=== PATIENT | male | born 1985 | race Caucasian/White ===

== ENCOUNTER 2018-10-11 19:30 | Emergency (ER) | payer OTHER ==
[2018-10-11 19:37] VITALS: BP 128/83; PULSE 87; TEMP 97.8; BMI 27.3
[2018-10-11] MEDS ORDERED: FAMOTIDINE 20 MG/50 ML IVPB 20 MG/50 ML MG IVPB ONE ×2 (20:10→20:42)
[2018-10-11] MEDS ORDERED: MAG HYDROX/AL HYDROX/SIMETH 30 ML UNIT-DOSE CUP PO ONE (20:10)
--- NOTE | 2018-10-11 20:33 | PDOC ---
History of Present Illness - General Chief Complaint: Pain Stated Complaint: ABD PAIN Time Seen by Provider: 10/11/18 19:50 History Source: Patient Exam Limitations: No Limitations Past History - Past Medical History Allergies/Adverse Reactions: Allergies Allergy/AdvReac Type Severity Reaction Status Date / Time No Known Allergies Allergy Verified 10/11/18 19:37 Home Medications: Ambulatory Orders Famotidine [Pepcid -] 20 mg PO BID #60 tablet 10/11/18 Omeprazole 20 mg PO BID 10/11/18 - Suicide/Smoking/Psychosocial Hx Smoking History: Never smoked Hx Alcohol Use: Yes ("a little") Drug/Substance Use Hx: No *Physical Exam - Vital Signs Last Vital Signs Temp Pulse Resp BP Pulse Ox 97.8 F 87 20 128/83 100 10/11/18 19:33 10/11/18 19:33 10/11/18 19:33 10/11/18 19:33 10/11/18 19:33 - Physical Exam General Appearance: No: Apparent Distress Respiratory/Chest: positive: Lungs Clear, Normal Breath Sounds. negative: Respiratory Distress Cardiovascular: positive: Regular Rhythm, Regular Rate, S1, S2. negative: Murmur Gastrointestinal/Abdominal: positive: Normal Bowel Sounds, Soft. negative: Tender, Distended, Guarding, Rebound Musculoskeletal: negative: CVA Tenderness Neurologic: positive: Alert, Normal Mood/Affect ED Treatment Course - LABORATORY CBC & Chemistry Diagram: 10/11/18 20:27 10/11/18 20:27 Medical Decision Making - Medical Decision Making 33 y/o M with no sig pmh presents with epigastric pain (sharp/burning in nature ) x 3 weeks, worse today. Pain is usually worse in the morning; has tried Tums which helped a little. Has not noticed anything worsening pain. Had 1 loose stool yesterday but none today. Also mentions mild dysuria yesterday. Has not seen a doctor yet regarding this pain. Denies fever, sob, cp, n/v, hematuria, penile discharge, rash. Drinks alcohol socially. Denies smoking or drug use. Denies prior abdominal surgeries. Consider gastritis; less suspicious for cholecystitis, pancreatitis; also r/o UTI given urinary complaint Plan: Labs, Pepcid, Maalox, reassess 10/11/18 20:30 Labs unremarkable Patient at times feeling better and then stating pain comes back On reassessment, abdomen soft, ND, NT Will give Sucralfate and reassess 10/11/18 21:37 Patient feeling slightly better Will refer to GI for further eval 10/11/18 22:07 *DC/Admit/Observation/Transfer Diagnosis at time of Disposition: Epigastric pain - Discharge Dispostion Disposition: HOME Condition at time of disposition: Stable Decision to Admit order: No - Prescriptions Prescriptions: Famotidine [Pepcid -] 20 mg PO BID #60 tablet - Referrals Referrals: Yannick Kyle [Primary Care Provider] - 2 Days Etienne Patel MD [Staff Physician] - 2 Days - Patient Instructions Printed Discharge Instructions: DI for Epigastric Pain Additional Instructions: Thank you for choosing [facility]. It was a pleasure taking care of you. You were referred to GI doctor for further evaluation Take Pepcid as prescribed Refrain from eating oily, spicy, fried foods Return to the Emergency Department if your symptoms worsen or persist or have other concerning symptoms. Paco por elegir el [facility]. Fue un placer cuidar de ti. Usted fue referido a un mdico GI para janet evaluacin adicional [place] Pepcid segn lo prescrito Abstenerse de comer alimentos grasos, picantes, fritos Regrese al Departamento de Emergencias si david sntomas empeoran o persisten o si tiene otros sntomas relacionados. - Post Discharge Activity
[2018-10-11 20:38] LABS: URINE APPEARANCE CLEAR; URINE BILIRUBIN NEGATIVE (NEGATIVE); URINE COLOR YELLOW; URINE GLUCOSE (UA) NEGATIVE (NEGATIVE); URINE KETONE NEGATIVE (NEGATIVE); URINE LEUK ESTERASE NEGATIVE (NEGATIVE); URINE NITRITE NEGATIVE (NEGATIVE); URINE PROTEIN NEGATIVE (NEGATIVE); URINE UROBILINOGEN 0.2 mg/dL (0.2-1.0)
[2018-10-11 20:44] LABS: BASO % 0.6 % (0-2.0); EOS % 1.4 % (0-4.5); HEMATOCRIT 41.8 % (35.4-49); HEMOGLOBIN 13.6 GM/dL (11.7-16.9); LYMPH % 37.1 % (8-40); MCH 26.8 pg (25.7-33.7); MCHC 32.6 g/dl (32.0-35.9); MEAN CELL VOLUME 82.3 fl (80-96); MEAN PLT VOLUME 8.2 fl (7.5-11.1); MONO % 7.5 % (3.8-10.2); NEUT % 53.4 % (42.8-82.8); PLATELET COUNT 322 K/MM3 (134-434); RBC 5.08 M/mm3 (4.00-5.60); RDW 13.7 % (11.9-15.9); WHITE BLOOD COUNT 7.1 K/mm3 (4.0-10.0)
[2018-10-11 21:02] LABS: ALBUMIN 4.3 g/dl (3.4-5.0); BILIRUBIN,TOTAL 1.6 mg/dL (0.2-1); BLOOD UREA NITROGEN 11.3 mg/dL (7-18); CALCIUM 9.2 mg/dL (8.5-10.1); CREATININE 1.2 mg/dL (0.55-1.3); POTASSIUM 4.1 mmol/L (3.5-5.1); TOT PROT 7.3 g/dl (6.4-8.2)
[2018-10-11] MEDS ORDERED: SUCRALFATE 1 GM TABLET (FP) PO ONE (21:27)
[2018-10-11] MEDS ORDERED: SUCRALFATE 1 GM TABLET (FP) ONE (21:35)
== END 2018-10-11 22:18 | disposition home or self-care (01) ==
LOC: JER 19:30
PROC: 3E033GC Introduction of Other Therapeutic Substance into Peripheral Vein, Percutaneous Approach (ICD-10-PCS; principal; 2018-10-11)
DX: R10.13 Epigastric pain (principal)
CPT/HCPCS: 36415; 80053; 81003; 83690; 85025; 87086; 96365; 99283-25